=== PATIENT | female | born 1990 | race Caucasian/White ===

== ENCOUNTER 2017-08-19 10:07 | Emergency (ER) | payer OTHER ==
[~2017-08-19] VITALS: Ht 160 cm; Wt 83.2 kg
[2017-08-19] MEDS ORDERED: ALBU8HFA IH (10:20)
[2017-08-19] MEDS ORDERED: HYDROCODONE/ACETAMINOPHEN 5-325 MG TABLET PO ONE (11:15)
[2017-08-19 13:22] VITALS: BP 110/59
== END 2017-08-19 13:23 | disposition home or self-care (01) ==
LOC: EMS 10:09
DX: S93.401A Sprain of unspecified ligament of right ankle, initial encounter (principal); J45.909 Unspecified asthma, uncomplicated; W10.8XXA Fall (on) (from) other stairs and steps, initial encounter; Y93.89 Activity, other specified; Y92.89 Other specified places as the place of occurrence of the external cause; Y99.8 Other external cause status
CPT/HCPCS: 99284

== ENCOUNTER 2017-11-06 08:38 | Emergency (ER) | payer OTHER ==
[~2017-11-06] VITALS: Ht 157.5 cm; Wt 68.2 kg
[~2017-11-06 08:38] MED LIST: ALBU8HFA IH
[2017-11-06 10:41] VITALS: BP 138/74
== END 2017-11-06 11:17 | disposition home or self-care (01) ==
LOC: EMS 08:41
DX: J02.9 Acute pharyngitis, unspecified (principal); J45.909 Unspecified asthma, uncomplicated
CPT/HCPCS: 87430; 99283

== ENCOUNTER 2018-02-20 08:33 | Emergency (ER) | payer OTHER ==
[~2018-02-20] VITALS: Ht 157.5 cm; Wt 77.3 kg
[2018-02-20] MEDS ORDERED: ACETAMINOPHEN 325 MG TABLET PO ONE (10:45)
[2018-02-20 10:54] VITALS: BP 123/68
[2018-02-20] MEDS ORDERED: AZITHROMYCIN 250 MG TABLET PO ONE (12:15)
[2018-02-20] MEDS ORDERED: PredniSONE 20 MG TABLET PO ONE (12:15)
== END 2018-02-20 12:48 | disposition home or self-care (01) ==
LOC: EMS 08:38
DX: J02.0 Streptococcal pharyngitis (principal); J45.909 Unspecified asthma, uncomplicated
CPT/HCPCS: 81025; 87430; 99284; J7512

== ENCOUNTER 2019-03-15 16:39 | Emergency (ER) | payer OTHER ==
[~2019-03-15] VITALS: Ht 157.5 cm; Wt 79.5 kg
[2019-03-15 16:44] VITALS: BP 122/86
[2019-03-15] MEDS ORDERED: IBUP-1506 PO (16:53)
[2019-03-15] MEDS ORDERED: MEDR150D9 IM (16:53)
[2019-03-15] MEDS ORDERED: IBUPROFEN 600 MG TABLET PO ONE (17:15)
[2019-03-15 17:27] LABS: APPEARANCE,URINE CLEAR (CLEAR); BILIRUBIN,URINE NEGATIVE (NEGATIVE); GLUCOSE, URINE (UA) NEGATIVE (NEGATIVE); KETONES,URINE NEGATIVE (NEGATIVE); LEUKOCYTE ESTERASE ,URINE TRACE (NEGATIVE); NITRATE,URINE NEGATIVE (NEGATIVE); OCCULT BLOOD,URINE MODERATE (NEGATIVE); PH,URINE 6.5 (5.0-8.0); PROTEIN,URINE NEGATIVE (NEGATIVE); UROBILINOGEN,URINE 0.2 mg/dL (<=1.0)
[2019-03-15 17:34] LABS: BACTERIA,URINE None Seen /HPF (None Seen); RBC,URINE 0-2 /HPF (0-2); SQUAMOUS EPITHELIAL CELL,UR Rare /LPF (None Seen)
== END 2019-03-15 17:44 | disposition home or self-care (01) ==
LOC: EMS 16:41
DX: S39.012A Strain of muscle, fascia and tendon of lower back, initial encounter (principal); J45.909 Unspecified asthma, uncomplicated; X50.0XXA Overexertion from strenuous movement or load, initial encounter; Y93.61 Activity, american tackle football; Y92.89 Other specified places as the place of occurrence of the external cause; Y99.8 Other external cause status

== ENCOUNTER 2019-10-23 08:46 | Emergency (ER) | payer OTHER ==
[~2019-10-23] VITALS: Ht 160 cm; Wt 83.2 kg
[~2019-10-23 08:46] MED LIST changes: -ALBU8HFA IH; +IBUP-1506 PO; +MEDR150D9 IM
[2019-10-23] MEDS ORDERED: D-ME236L5 PO (09:00)
[2019-10-23] MEDS ORDERED: ALBU8HFA IH (09:00)
[2019-10-23 10:07] LABS: RAPID GROUP A STREP NEGATIVE (NEGATIVE)
[2019-10-23 10:14] VITALS: BP 102/58
[2019-10-23 10:15] LABS: INFLUENZA TYPE A NEGATIVE FOR TYPE A (NEGATIVE); INFLUENZA TYPE B NEGATIVE FOR TYPE B (NEGATIVE)
== END 2019-10-23 11:10 | disposition home or self-care (01) ==
LOC: EMS 08:46
DX: J40 Bronchitis, not specified as acute or chronic (principal); Z87.09 Personal history of other diseases of the respiratory system
CPT/HCPCS: 87430; 87804

== ENCOUNTER 2020-07-19 15:48 | Emergency (ER) | payer OTHER ==
[~2020-07-19] VITALS: Ht 165.1 cm; Wt 70.5 kg
[~2020-07-19 15:48] MED LIST changes: +ALBU8HFA IH; +D-ME236L5 PO; -IBUP-1506 PO
[2020-07-19] MEDS ORDERED: FAMO20 PO (16:19)
[2020-07-19] MEDS ORDERED: DIPHENOXYLATE/ATROP 2.5-0.025 MG TABLET PO ONE (17:00)
[2020-07-19] MEDS ORDERED: SODIUM CHLORIDE 0.9% 1,000 ML IV ONE (17:00)
[2020-07-19 17:26] LABS: BASOPHILS % (AUTO) 0.2 % (0.0-2.0); HEMATOCRIT 40.2 % (36-46); HEMOGLOBIN 13.5 g/dL (12.0-16.0); LYMPHOCYTES # (AUTO) 1.9 K/uL (1.0-4.8); LYMPHOCYTES % (AUTO) 23.4 % (22.0-44.0); MEAN CORPUSCULAR HEMOGLOBIN 30.2 pg (26.0-34.0); MEAN CORPUSCULAR HGB CONC 33.6 G/dL (31.0-37.0); MEAN CORPUSCULAR VOLUME 90 fL (80-100); MONOCYTES # (AUTO) 0.5 K/uL (0.1-1.0); NEUTROPHILS # (AUTO) 3.9 K/uL (1.8-7.7); NEUTROPHILS % (AUTO) 47.8 % (40.0-70.0); PLATELET COUNT (AUTO) 269 K/uL (150-450); RED BLOOD CELL COUNT(AUTO) 4.47 MIL/uL (4.00-5.20); RED CELL DISTRIBUTION WIDTH 13.1 % (11.5-14.5)
[2020-07-19 17:27] LABS: EOSINOPHILS % (AUTO) 22.6 % (1.0-6.0)
[2020-07-19 17:46] LABS: ANION GAP 7 mmol/L (8-16); CALCIUM, TOTAL 9.2 mg/dL (8.8-10.5); CARBON DIOXIDE 26 mmol/L (22-29); CHLORIDE 103 mmol/L (98-107); CREATININE 0.83 mg/dL (0.60-1.30); GLOMERULAR FILTR. RATE CALC > 60 mL/min (>60); GLUCOSE,RANDOM 102 mg/dL (70-110); SODIUM SERUM 136 mmol/L (136-145); UREA NITROGEN, BLOOD 8 mg/dL (7-18)
[2020-07-19 17:52] LABS: ALANINE AMINOTRANSFERASE 27 U/L (12-78); ALBUMIN 3.6 g/dL (3.4-5.0); ALKALINE PHOSPHATASE 92 U/L (46-116); ASPARTATE AMINOTRANSFERASE 16 U/L (15-37); BILIRUBIN,TOTAL 0.4 mg/dL (0.1-1.0); TOTAL PROTEIN, SERUM 6.9 g/dL (6.4-8.2)
[2020-07-19 18:14] VITALS: BP 107/65
== END 2020-07-19 18:50 | disposition home or self-care (01) ==
LOC: EMS 15:48
DX: R19.7 Diarrhea, unspecified (principal); R10.84 Generalized abdominal pain; J45.909 Unspecified asthma, uncomplicated
CPT/HCPCS: 36415; 80053; 85025; 96360; 99284; J7030

== ENCOUNTER 2021-01-03 10:58 | Emergency (ER) | payer OTHER ==
[~2021-01-03] VITALS: Ht 162.6 cm; Wt 72.7 kg
[~2021-01-03 10:58] MED LIST changes: -ALBU8HFA IH; -D-ME236L5 PO; +FAMO20 PO; -MEDR150D9 IM
[2021-01-03] MEDS ORDERED: ACETAMINOPHEN 325 MG TABLET PO ONE (12:00)
[2021-01-03] MEDS ORDERED: LIDOCAINE 5% TRANSDERMAL PATCH TD ONE (12:45)
[2021-01-03] MEDS ORDERED: IBUPROFEN 400 MG TABLET PO ONE (12:45)
[2021-01-03 13:45] VITALS: BP 127/73
== END 2021-01-03 14:27 | disposition home or self-care (01) ==
LOC: EMS 11:15
DX: R07.9 Chest pain, unspecified (principal)
CPT/HCPCS: 93005; 99284; 71046; 71046-TC

== ENCOUNTER 2021-07-25 11:05 | Emergency (ER) | payer OTHER ==
[~2021-07-25] VITALS: Ht 154.9 cm; Wt 86.4 kg
[2021-07-25 13:02] LABS: BASOPHILS % (AUTO) 0.5 % (0.0-2.0); EOSINOPHILS % (AUTO) 0.2 % (1.0-6.0); HEMATOCRIT 41.6 % (36-46); HEMOGLOBIN 14.1 g/dL (12.0-16.0); LYMPHOCYTES % (AUTO) 13.8 % (22.0-44.0); MEAN CORPUSCULAR HEMOGLOBIN 31.1 pg (26.0-34.0); MEAN CORPUSCULAR HGB CONC 33.8 G/dL (31.0-37.0); MEAN CORPUSCULAR VOLUME 92 fL (80-100); MONOCYTES # (AUTO) 0.4 K/uL (0.1-1.0); MONOCYTES % (AUTO) 5.9 % (2.0-9.0); NEUTROPHILS # (AUTO) 5.7 K/uL (1.8-7.7); NEUTROPHILS % (AUTO) 79.6 % (40.0-70.0); PLATELET COUNT (AUTO) 266 K/uL (150-450); RED BLOOD CELL COUNT(AUTO) 4.52 MIL/uL (4.00-5.20); RED CELL DISTRIBUTION WIDTH 12.3 % (11.5-14.5)
[2021-07-25 13:12] LABS: ANION GAP 14 mmol/L (8-16); CALCIUM, TOTAL 8.8 mg/dL (8.8-10.5); CARBON DIOXIDE 23 mmol/L (22-29); CHLORIDE 103 mmol/L (98-107); CREATININE 0.72 mg/dL (0.60-1.30); GLOMERULAR FILTR. RATE CALC > 60 mL/min (>60); GLUCOSE,RANDOM 93 mg/dL (70-110); POTASSIUM 4.3 mmol/L (3.5-5.1); SODIUM SERUM 140 mmol/L (136-145); UREA NITROGEN, BLOOD 9 mg/dL (7-18)
[2021-07-25 13:44] LABS: ALANINE AMINOTRANSFERASE 23 U/L (12-78); ALKALINE PHOSPHATASE 69 U/L (46-116); ASPARTATE AMINOTRANSFERASE 17 U/L (15-37); BILIRUBIN,TOTAL 0.5 mg/dL (0.1-1.0); HCG,QUANTITATIVE 27143 mIU/mL (0-6); TOTAL PROTEIN, SERUM 7.8 g/dL (6.4-8.2)
[2021-07-25 15:14] LABS: APPEARANCE,URINE CLEAR (CLEAR); BILIRUBIN,URINE NEGATIVE (NEGATIVE); GLUCOSE, URINE (UA) NEGATIVE (NEGATIVE); KETONES,URINE >=80 mg/dL (NEGATIVE); LEUKOCYTE ESTERASE ,URINE NEGATIVE (NEGATIVE); NITRATE,URINE NEGATIVE (NEGATIVE); OCCULT BLOOD,URINE NEGATIVE (NEGATIVE); PH,URINE 5.5 (5.0-8.0); PROTEIN,URINE NEGATIVE (NEGATIVE); UROBILINOGEN,URINE 0.2 mg/dL (<=1.0)
[2021-07-25 15:55] VITALS: BP 118/63
== END 2021-07-25 16:32 | disposition home or self-care (01) ==
LOC: EMS 11:05
DX: O20.0 Threatened abortion (principal); J45.909 Unspecified asthma, uncomplicated; Z3A.01 Less than 8 weeks gestation of pregnancy
CPT/HCPCS: 76801; 76817; 80053; 81003; 84702; 85025; 86901; 99284

== ENCOUNTER 2022-12-29 13:16 | Emergency (ER) | payer OTHER ==
[~2022-12-29] VITALS: Ht 162.6 cm; Wt 90.0 kg
[2022-12-29 15:34] VITALS: BP 119/62
== END 2022-12-29 15:44 | disposition home or self-care (01) ==
LOC: EMS 13:18
DX: J39.9 Disease of upper respiratory tract, unspecified (principal); J45.909 Unspecified asthma, uncomplicated
CPT/HCPCS: 99282; Z7502